=== PATIENT | female | born 1985 | race Caucasian/White ===

== ENCOUNTER → 2016-05-23 | Outpatient (CLI) | payer BC ==
[~2016-05-23] MED LIST: CALC500C70 PO; MAGN400T6 PO; OMEG10007 PO; PRENTAB26 PO
[2016-05-23 13:46] LABS: URINE APPEARANCE CLEAR (CLEAR); URINE BILIRUBIN NEG (NEG); URINE COLOR YELLOW; URINE EPITHELIAL CELL AUTO >30 /lpf (0-5); URINE NITRITE NEG (NEG); URINE PH 7.5 (4.5-7.5); UROBILINOGEN NEG (NEG)
[2016-05-23 13:50] LABS: MANUAL MICROSCOPIC REQUIRED? NO; REVIEW REQ? NO
== END | disposition home or self-care (01) ==
LOC: C.LABSPEC 13:20
PROVIDERS: ATTEND Obstetrics & Gynecology
DX: Z34.00 Encounter for supervision of normal first pregnancy, unspecified trimester (principal)

== ENCOUNTER → 2016-05-27 | Outpatient (CLI) | payer BC ==
[~2016-05-27] MED LIST changes: +CALCTAB30 PO
[2016-05-31 01:40] LABS: CHLAMYDIA TRACH RNA*** NOT DETECTED (NOT DETECTED); GC (NEIS GONORRHOEAE)RNA** NOT DETECTED (NOT DETECTED)
== END | disposition home or self-care (01) ==
LOC: C.LABSPEC 17:50
PROVIDERS: ATTEND Obstetrics & Gynecology
DX: Z34.00 Encounter for supervision of normal first pregnancy, unspecified trimester (principal)

== ENCOUNTER → 2016-05-30 | Outpatient (CLI) | payer BC ==
[2016-05-30 09:31] LABS: BASO % 0.2 %; BASO ABS # 0.01 K/uL (0-0.2); COMPLETE YES; HEMATOCRIT 33.5 % (37-47); IG% 0.2 %; LYMPH % 23.2 %; LYMPH ABS # 1.14 K/uL (1.2-3.4); MEAN CELL VOLUME 74.1 fL (80-100); MEAN CORPUSCULAR HGB CONC 33.7 g/dl (32-36); MEAN PLATELET VOLUME 10.6 fL (7.4-10.4); MONO % 9.6 %; NEUT % 64.8 %; PLATELET COUNT 276 K/uL (130-400); RED BLOOD COUNT 4.52 M/uL (4.2-5.4); WHITE BLOOD COUNT 4.91 K/uL (4.8-10.8)
== END | disposition home or self-care (01) ==
LOC: C.LAB1850 08:10
PROVIDERS: ATTEND Obstetrics & Gynecology
DX: Z34.00 Encounter for supervision of normal first pregnancy, unspecified trimester (principal)

== ENCOUNTER → 2016-07-22 | Outpatient (CLI) | payer BC ==
[~2016-07-22] MED LIST changes: -CALCTAB30 PO
[2016-07-22 18:16] LABS: GTGD 50 Grams
[2016-07-26 11:23] LABS: AFP CONCENTRATION 20.9 NG/ML; AFP MULTIPLE OF MEDIAN 0.54; AFPTS GESTATIONAL AGE 16.3 WEEKS; AFPTS INSULIN DEP DIABETIC? NO; AFPTS MATERNAL WT 122 LBS; ALPHA-FETOPROTEIN RACE CAUCASIAN=W; HISTORY OF NTD NO; REPEAT SAMPLE? NO
== END | disposition home or self-care (01) ==
LOC: C.LAB1850 15:51
PROVIDERS: ATTEND Obstetrics & Gynecology
DX: Z34.03 Encounter for supervision of normal first pregnancy, third trimester (principal)

== ENCOUNTER → 2016-10-13 | Outpatient (CLI) | payer BC ==
[~2016-10-13] MED LIST changes: +CALCTAB30 PO
[2016-10-13 17:39] LABS: HEMATOCRIT 33.7 % (37-47)
[2016-10-13 17:54] LABS: GTGD 50 Grams
== END | disposition home or self-care (01) ==
LOC: C.LAB1850 16:24
PROVIDERS: ATTEND Obstetrics & Gynecology
DX: Z34.03 Encounter for supervision of normal first pregnancy, third trimester (principal)

== ENCOUNTER → 2016-10-13 | Outpatient (CLI) | payer BC ==
[2016-10-13 19:10] LABS: URINE APPEARANCE CLEAR (CLEAR); URINE BILIRUBIN NEG (NEG); URINE COLOR YELLOW; URINE EPITHELIAL CELL AUTO >30 /lpf (0-5); URINE NITRITE NEG (NEG); URINE PH 8.5 (4.5-7.5); URINE SPECIFIC GRAVITY 1.012 (1.000-1.030); UROBILINOGEN NEG (NEG)
[2016-10-13 19:38] LABS: MANUAL MICROSCOPIC REQUIRED? NO; REVIEW REQ? NO
== END | disposition home or self-care (01) ==
LOC: C.LABSPEC 17:54
PROVIDERS: ATTEND Obstetrics & Gynecology
DX: Z34.03 Encounter for supervision of normal first pregnancy, third trimester (principal)

== ENCOUNTER → 2016-12-09 | Outpatient (CLI) | payer BC | END | disposition home or self-care (01) | LOC: C.LABSPEC 17:30 | PROVIDERS: ATTEND Obstetrics & Gynecology | DX: Z34.03 Encounter for supervision of normal first pregnancy, third trimester (principal) ==

== ENCOUNTER 2016-12-23 03:39 | Inpatient (IN) | payer BC ==
[~2016-12-23] VITALS: Ht 160 cm; Wt 68.6 kg
[2016-12-23] MEDS ORDERED: LACTATED RINGER'S 1000ML 1,000 ML IV SCH ×2 (04:06→05:04)
[2016-12-23] MEDS ORDERED: LACTATED RINGER'S 1000ML 1,000 ML IV PRN (04:06)
[2016-12-23] MEDS ORDERED: CALC500C70 PO (04:23)
[2016-12-23] MEDS ORDERED: PRENTAB26 PO (04:23)
[2016-12-23] MEDS ORDERED: MAGN400T6 PO (04:23)
[2016-12-23] MEDS ORDERED: OMEG10007 PO (04:23)
[2016-12-23] MEDS ORDERED: SUPERCREAM 0.870 % 15GM JAR EXT PRN (05:15)
[2016-12-23] MEDS ORDERED: OXYTOCIN 30 UNITS/500ML NSS IV PRN (05:15)
[2016-12-23] MEDS ORDERED: IBUPROFEN 600 MG TAB PO PRN (05:15)
[2016-12-23] MEDS ORDERED: BENZOCAINE 20% AER SPR 82.5 GM CAN EXT PRN (05:15)
[2016-12-23] MEDS ORDERED: OXYCODONE/ACETAMINOPHEN 5-325 TAB PO PRN (05:15)
[2016-12-23] MEDS ORDERED: DIPHTHERIA/TETANUS/PERTUSSIS 0.5 ML SYR/VIAL IM. ONE (05:15)
[2016-12-23] MEDS ORDERED: ACETAMINOPHEN 325 MG TAB PO PRN (05:15)
[2016-12-23] MEDS ORDERED: LANOLIN OINT EXT PRN ×2 (05:15)
[2016-12-23] MEDS ORDERED: HYDROCORTISONE ACETATE 25 MG SUPP PR PRN (05:15)
[2016-12-23 05:27] VITALS: Ht 160 cm; Wt 68.6 kg
[2016-12-23 05:27] LABS: MEAN CELL VOLUME 78.5 fL (80-100); MEAN CORPUSCULAR HEMOGLOBIN 26.4 pg (25-34); MEAN CORPUSCULAR HGB CONC 33.6 g/dl (32-36); MEAN PLATELET VOLUME 10.8 fL (7.4-10.4); PLATELET COUNT 133 K/uL (130-400); RED BLOOD COUNT 4.97 M/uL (4.2-5.4); WHITE BLOOD COUNT 14.94 K/uL (4.8-10.8)
[2016-12-23] MEDS ORDERED: OXYTOCIN INJ 10 UNITS/ML VIAL ONE (05:32)
[2016-12-23] MEDS ORDERED: DOCUSATE SODIUM 100 MG CAP PO SCH (08:00)
[2016-12-23] MEDS ORDERED: PRENATAL VITAMIN TAB PO SCH (08:00)
[2016-12-23] MEDS ORDERED: MAGNESIUM SULFATE / WTR 1,000 ML IV ONE (08:30)
[2016-12-23] MEDS ORDERED: MAGNESIUM SULFATE 4GM / WTR 100ML IV ONE (08:45)
[2016-12-23] MEDS ORDERED: MAGNESIUM SULFATE 40GM / WTR 1000 ML IV SCH (09:00)
[2016-12-23 09:11] LABS: BUN/CREATININE RATIO 16.4 (10-20); CALCIUM 8.8 mg/dl (8.5-10.1); CREATININE 0.92 mg/dl (0.60-1.20); POTASSIUM 4.3 mmol/L (3.5-5.1)
[2016-12-23 09:12] LABS: ALB/GLOB RATIO 0.7 (0.9-2)
[2016-12-23] MEDS ORDERED: LIDOCAINE HCL 2% JELLY 30 ML TUBE EXT ONE (11:06)
[2016-12-23] MEDS ORDERED: LABETALOL HCL IV 5 MG/ML 20ML IV ONE (12:38)
[2016-12-23] MEDS ORDERED: LABETALOL HCL IV 5 MG/ML 20ML IV PRN (12:45)
[2016-12-23] MEDS: LABETALOL HCL IV 5 MG/ML 20ML IV PRN ×3 (13:05→15:53)
[2016-12-23] MEDS ORDERED: LABETALOL HCL IV 5 MG/ML 20ML IV STA ×2 (14:01→15:46)
[2016-12-23 15:28] LABS: ALB/GLOB RATIO 0.7 (0.9-2); BUN/CREATININE RATIO 16.5 (10-20); CALCIUM 8.2 mg/dl (8.5-10.1); CREATININE 0.77 mg/dl (0.60-1.20)
[2016-12-23 15:46] LABS: HEMATOCRIT 30.6 % (37-47); MEAN CELL VOLUME 76.5 fL (80-100); MEAN CORPUSCULAR HEMOGLOBIN 26.3 pg (25-34); MEAN CORPUSCULAR HGB CONC 34.3 g/dl (32-36); PLATELET COUNT 42 K/uL (130-400); WHITE BLOOD COUNT 10.86 K/uL (4.8-10.8)
[2016-12-23 15:48] LABS: PLT ESTIMATE DECREASED
[2016-12-23 18:11] LABS: HEMATOCRIT 30.7 % (37-47); MEAN CELL VOLUME 75.6 fL (80-100); MEAN CORPUSCULAR HEMOGLOBIN 25.9 pg (25-34); RED BLOOD COUNT 4.06 M/uL (4.2-5.4); WHITE BLOOD COUNT 9.51 K/uL (4.8-10.8)
[2016-12-23 18:28] LABS: MEAN CORPUSCULAR HGB CONC 34.2 g/dl (32-36); PLATELET COUNT 28 K/uL (130-400)
[2016-12-23 18:29] LABS: PLT ESTIMATE DECREASED
[2016-12-23 18:39] LABS: BUN/CREATININE RATIO 13.6 (10-20); CALCIUM 7.6 mg/dl (8.5-10.1); CREATININE 0.89 mg/dl (0.60-1.20); POTASSIUM 4.1 mmol/L (3.5-5.1)
[2016-12-23 18:42] LABS: ALB/GLOB RATIO 0.8 (0.9-2)
--- NOTE | 2017-01-05 20:54 | Discharge Summary ---
Discharge Summary Date of Service Jan 05, 2017. Discharge Summary Admission Date: Dec 23, 2016 at 04:07 Discharge Date: Dec 23, 2016 Discharge Disposition: Home Principal Diagnosis: Precipitious delivery, thrombocytopenia Discharge Exam Nancy was admitted during the night supervisor on 12/23 in the green chain offbearer hours and underwent a precipitous vaginal delivery. At that time she was refusing placement of denisha or any medical interventions. Blood pressures were noted, however, to be abnormally high - this was signed out to Dr. Orozco who assumed care as of 8:30am, and the patient was kept in L&D for monitoring. Later in the day, labs revealed platelets in the 20s, consistent with probable severe preeclampsia. Platelet transfusion was given per Dr. Orozco. It appears that the patient was discharged to home later 12/23 at her own request. Hospital Course Total Time Spent: Less than 30 minutes This includes examination of the patient, discharge planning, medication reconciliation, and communication with other providers. Discharge Instructions Please refer to the electronic Patient Visit Report (Discharge Instructions) for additional information.
--- NOTE | 2017-01-05 20:55 | Vaginal Delivery Summary ---
Vaginal Delivery Summary Nancy arrived to Labor and Delivery completely dilated and with urge to push, accompanied by her emergency communications dispatcher and support persons. She declined placement of denisha or anesthesia. Shortly after arrival she pushed to deliver a viable infant vaginally without complication. Please see QS / CPN system for full documentation.
== END 2016-12-23 20:18 | disposition home or self-care (01) | DRG 775 ==
LOC: C.LD 03:39 → C.OPB 03:39 → C.LD 04:07 → C.OPB 04:07
PROVIDERS: ADMIT Obstetrics & Gynecology; ATTEND Obstetrics & Gynecology
PROC: 10E0XZZ Delivery of Products of Conception, External Approach (ICD-10-PCS; principal; 2016-12-23)
DX: O62.3 Precipitate labor (principal); O14.14 Severe pre-eclampsia complicating childbirth; Z37.0 Single live birth; Z3A.38 38 weeks gestation of pregnancy

== ENCOUNTER → 2017-02-09 | Outpatient (CLI) | payer BC ==
[2017-02-09 16:35] LABS: BASO % 0.5 %; BASO ABS # 0.03 K/uL (0-0.2); COMPLETE YES; EOS % 7.9 %; HEMATOCRIT 34.8 % (37-47); IG% 0.2 %; LYMPH % 38.7 %; MEAN CELL VOLUME 77.7 fL (80-100); MEAN CORPUSCULAR HEMOGLOBIN 25.9 pg (25-34); MEAN CORPUSCULAR HGB CONC 33.3 g/dl (32-36); MEAN PLATELET VOLUME 9.7 fL (7.4-10.4); MONO % 7.7 %; PLATELET COUNT 322 K/uL (130-400); RED BLOOD COUNT 4.48 M/uL (4.2-5.4); WHITE BLOOD COUNT 5.68 K/uL (4.8-10.8)
[2017-02-09 16:38] LABS: URINE APPEARANCE CLEAR (CLEAR); URINE BILIRUBIN NEG (NEG); URINE COLOR YELLOW; URINE NITRITE NEG (NEG); URINE SPECIFIC GRAVITY 1.008 (1.000-1.030); UROBILINOGEN NEG (NEG)
[2017-02-09 16:41] LABS: MANUAL MICROSCOPIC REQUIRED? NO; REVIEW REQ? YES
[2017-02-09 16:49] LABS: URINE EPITHELIAL CELL AUTO 0-5 /lpf (0-5)
[2017-02-09 17:05] LABS: ALT/SGPT 33 U/L (12-78); AST/SGOT 22 U/L (15-37); BLOOD UREA NITROGEN 7 mg/dl (7-18); BUN/CREATININE RATIO 11.2 (10-20); CALCIUM 9.4 mg/dl (8.5-10.1); CARBON DIOXIDE 27 mmol/L (21-32); CHLORIDE 105 mmol/L (98-107); CREATININE 0.66 mg/dl (0.60-1.20); GLUCOSE 96 mg/dl (70-99); SODIUM 138 mmol/L (136-145)
[2017-02-09 17:08] LABS: ALB/GLOB RATIO 1.3 (0.9-2); ALKALINE PHOSPHATASE 83 U/L (45-117)
== END | disposition home or self-care (01) ==
LOC: C.LAB1850 15:57
PROVIDERS: ATTEND Obstetrics & Gynecology
DX: O14.10 Severe pre-eclampsia, unspecified trimester (principal); R30.0 Dysuria

== ENCOUNTER 2017-02-24 06:12 | Emergency (ER) | payer BC ==
[~2017-02-24] VITALS: Ht 160 cm; Wt 58.0 kg
[~2017-02-24 06:12] MED LIST changes: -CALCTAB30 PO; +METHYLERGONOVINE MALEATE 0.2 MG TAB PO SCH
[2017-02-24 06:18] VITALS: TEMP 36.5
[2017-02-24] MEDS ORDERED: CALCTAB30 PO (06:35)
[2017-02-24] MEDS ORDERED: SODIUM CHLORIDE 0.9% 1000ML 1,000 ML IV STA (06:44)
[2017-02-24 07:00] VITALS: O2SAT 100; Ht 160 cm; Wt 58.0 kg
[2017-02-24 07:27] LABS: BASO % 0.5 %; BASO ABS # 0.02 K/uL (0-0.2); COMPLETE YES; EOS % 2.9 %; HEMATOCRIT 37.4 % (37-47); IG% 0.2 %; LYMPH % 43.7 %; LYMPH ABS # 1.83 K/uL (1.2-3.4); MEAN CELL VOLUME 75.1 fL (80-100); MEAN CORPUSCULAR HEMOGLOBIN 25.1 pg (25-34); MEAN CORPUSCULAR HGB CONC 33.4 g/dl (32-36); MEAN PLATELET VOLUME 9.4 fL (7.4-10.4); MONO % 7.9 %; NEUT % 44.8 %; PLATELET COUNT 289 K/uL (130-400); PROTHROMBIN TIME (PATIENT) 10.2 SECONDS (9.0-12.0); RED BLOOD COUNT 4.98 M/uL (4.2-5.4); WHITE BLOOD COUNT 4.19 K/uL (4.8-10.8)
[2017-02-24 07:37] LABS: BUN/CREATININE RATIO 16.2 (10-20); CALCIUM 9.2 mg/dl (8.5-10.1); CREATININE 0.77 mg/dl (0.60-1.20); POTASSIUM 3.4 mmol/L (3.5-5.1)
[2017-02-24 07:39] LABS: ALB/GLOB RATIO 1.1 (0.9-2)
[2017-02-24 07:52] LABS: MANUAL MICROSCOPIC REQUIRED? YES; URINE APPEARANCE CLOUDY (CLEAR); URINE BILIRUBIN NEG (NEG); URINE COLOR RED; URINE NITRITE NEG (NEG); URINE PH 6.5 (4.5-7.5); URINE SPECIFIC GRAVITY 1.015 (1.000-1.030); UROBILINOGEN NEG (NEG)
[2017-02-24 07:53] LABS: REVIEW REQ? NO; URINE RBC >30 /hpf (0-4)
[2017-02-24 07:55] LABS: URINE BACTERIA NEG (NEG)
--- NOTE | 2017-02-24 08:41 | DIAGNOSTIC IMAGING REPORT ---
ULTRASOUND OF THE PELVIS CLINICAL HISTORY: Vaginal bleeding. 9 weeks . COMPARISON STUDY: No priors. TECHNIQUE: Real-time, grayscale, and color flow sonography of the pelvis is performed transabdominally. Images are reviewed in the transverse and longitudinal planes. FINDINGS: Uterus: The uterus is normal in size and heterogeneous and echotexture, measuring 7.0 x 4.2 x 5.2 cm. Endometrium: The endometrium is thickened and heterogeneous, measuring up to 1.9 cm. There are 2 round heterogeneously hyperechoic and hypervascular nodular foci identified within the endometrium. These measure 2.1 cm and 1.5 cm. Ovaries: The ovaries are normal in size and morphology. The right ovary measures 2.1 x 1.4 x 1.9 cm and the left ovary measures 1.8 x 1.6 x 1.3 cm. Normal Doppler waveforms are shown within both ovaries. Pelvis: There is no free fluid in the cul-de-sac. No concerning adnexal lesion is seen. IMPRESSION: 1. There are 2 round, hyperechoic, and hypervascular nodular foci identified within the endometrium measuring up to 2.1 cm. Differential considerations include retained products of conception or possibly large endometrial polyps. Follow-up of the patient's biomedical equipment tech is recommended. 2. The ovaries are normal as visualized on this transabdominal examination. Electronically signed by: Bishnu Barnhart M.D. 02/24/2017 8:39 AM Dictated Date/Time: 02/24/2017 8:36 AM
[2017-02-24] MEDS ORDERED: METHYLERGONOVINE MALEATE 0.2 MG/ML AMP IM SCH (09:15)
--- NOTE | 2017-02-24 15:20 | EMERGENCY ROOM VISIT NOTE ---
History Report prepared by Emilie: Suni Horvath Under the Supervision of: Dr. Ramin Marquez D.O. First contact with patient: 06:34 Chief Complaint: VAGINAL BLEEDING Stated Complaint: POST BLEEDING (9 WKS) LG BLOOD CLOTS PASSED History of Present Illness The patient is a 31 year old female who presents to the Emergency Room with complaints of worsening vaginal bleeding for the past 3 days. The patient is 9 weeks post- with her first child. She had a normal vaginal delivery, but states that afterward she had preeclampsia with HELLP syndrome. After delivery she was transferred to [place] for 4 days. She was on labetalol but is no longer taking that. The patient's bleeding had not completely stopped but she states that it was very light. Three days ago she started passing quarter-sized clots and her bleeding started to get heavier. Yesterday she called her ob-nurse obgyn and they wanted to schedule an ultrasound. She woke up this morning at 5am and passed a very large clot. She has had heavy bleeding all morning and states that she is bleeding through more than 1 pad per hour. The patient reports some pressure that she states feels like she needs to have a bowel movement. She rates her pain as a 2/10 in severity. Her last bowel movement was yesterday and was normal. The patient denies abdominal pain and urinary symptoms. She does not take any blood thinners. Source of History: patient Onset: 3 days ago Position: other (vagina) Symptom Intensity: 2/10 Quality: other (bleeding) Timing: worsening Associated Symptoms: No abdominal pain, No urinary symptoms Review of Systems See HPI for pertinent positives & negatives. A total of 10 systems reviewed and were otherwise negative. Past Medical & Surgical Medical Problems: (1) Normal labor and delivery Family History No pertinent history stated. Social History Smoking Status: Never Smoker Housing Status: lives with family Current/Historical Medications Scheduled Ncopqhm-Wytdzcywx-Nkof (Calcium/Magnesium/Zinc), 1 TAB PO DAILY Calcium/Vitamin D (Os-Darinel 500 Plus D), 1 TAB PO DAILY Multivit/Min/Iron/Fol Ac/Pren ( Vitamin), 1 TAB PO DAILY Miscellaneous Medications Fish Oil ([place]-3), 1 CAP PO Allergies Coded Allergies: [place] (Unverified Allergy, Mild, GI SYMPTOMS, 02/24/17) Dairy (Unverified Allergy, Mild, GI SYMPTOMS, 02/24/17) Gluten (Unverified Allergy, Mild, GI SYMPTOMS, 02/24/17) Physical Exam Vital Signs Date Time Temp Pulse Resp B/P (MAP) Pulse Ox O2 Delivery O2 Flow Rate FiO2 02/24/17 13:11 75 18 109/64 98 Room Air 02/24/17 11:45 73 16 114/73 100 Room Air 02/24/17 11:17 74 02/24/17 09:45 84 20 120/73 99 Room Air 02/24/17 07:30 67 20 115/77 100 Room Air 02/24/17 07:19 62 02/24/17 07:00 100 Room Air 02/24/17 06:18 36.5 90 20 114/81 100 Room Air Physical Exam GENERAL: alert, sitting up in bed, well appearing, well nourished, no distress, non-toxic EYE EXAM: normal conjunctiva OROPHARYNX: no exudate, no erythema, lips, buccal mucosa, and tongue normal and mucous membranes are moist NECK: supple, no nuchal rigidity, no adenopathy, non-tender LUNGS: Clear to auscultation. Normal chest wall mechanics HEART: no murmurs, S1 normal and S2 normal ABDOMEN: abdomen soft, non-tender, normo-active bowel sounds, no masses, no rebound or guarding. BACK: Back is symmetrical on inspection and there is no deformity, no midline tenderness, no CVA tenderness. : Normal external genitalia. Three half dollar sized clots removed from cervix , which is partially open. Faint amount of bleeding following removal of clots. SKIN: no rashes and no bruising UPPER EXTREMITIES: upper extremities are grossly normal. LOWER EXTREMITIES: No pitting edema. NEURO EXAM: Normal sensorium, cranial nerves II-XII grossly intact, normal speech, no gross weakness of arms, no gross weakness of legs. Medical Decision & Procedures ER Provider Diagnostic Interpretation: Radiology results as stated below per my review and the radiologist's interpretation: ULTRASOUND OF THE PELVIS CLINICAL HISTORY: Vaginal bleeding. 9 weeks . COMPARISON STUDY: No priors. TECHNIQUE: Real-time, grayscale, and color flow sonography of the pelvis is performed transabdominally. Images are reviewed in the transverse and longitudinal planes. FINDINGS: Uterus: The uterus is normal in size and heterogeneous and echotexture, measuring 7.0 x 4.2 x 5.2 cm. Endometrium: The endometrium is thickened and heterogeneous, measuring up to 1.9 cm. There are 2 round heterogeneously hyperechoic and hypervascular nodular foci identified within the endometrium. These measure 2.1 cm and 1.5 cm. Ovaries: The ovaries are normal in size and morphology. The right ovary measures 2.1 x 1.4 x 1.9 cm and the left ovary measures 1.8 x 1.6 x 1.3 cm. Normal Doppler waveforms are shown within both ovaries. Pelvis: There is no free fluid in the cul-de-sac. No concerning adnexal lesion is seen. IMPRESSION: 1. There are 2 round, hyperechoic, and hypervascular nodular foci identified within the endometrium measuring up to 2.1 cm. Differential considerations include retained products of conception or possibly large endometrial polyps. Follow-up of the patient's public works inspector is recommended. 2. The ovaries are normal as visualized on this transabdominal examination. Electronically signed by: Bishnu Barnhart M.D. 02/24/2017 8:39 AM Dictated Date/Time: 02/24/2017 8:36 AM Laboratory Results 02/24/17 07:00 Red Blood Count 4.98, Mean Corpuscular Volume 75.1, Mean Corpuscular Hemoglobin 25.1, Mean Corpuscular Hemoglobin Concent 33.4, Mean Platelet Volume 9.4, Neutrophils (%) (Auto) 44.8, Lymphocytes (%) (Auto) 43.7, Monocytes (%) (Auto) 7.9, Eosinophils (%) (Auto) 2.9, Basophils (%) (Auto) 0.5, Neutrophils # (Auto) 1.88, Lymphocytes # (Auto) 1.83, Monocytes # (Auto) 0.33, Eosinophils # (Auto) 0.12, Basophils # (Auto) 0.02 02/24/17 07:00 Test 02/24/17 07:00 02/24/17 07:15 White Blood Count 4.19 K/uL (4.8-10.8) Red Blood Count 4.98 M/uL (4.2-5.4) Hemoglobin 12.5 g/dL (12.0-16.0) Hematocrit 37.4 % (37-47) Mean Corpuscular Volume 75.1 fL (80-100) Mean Corpuscular Hemoglobin 25.1 pg (25-34) Mean Corpuscular Hemoglobin Concent 33.4 g/dl (32-36) Platelet Count 289 K/uL (130-400) Mean Platelet Volume 9.4 fL (7.4-10.4) Neutrophils (%) (Auto) 44.8 % Lymphocytes (%) (Auto) 43.7 % Monocytes (%) (Auto) 7.9 % Eosinophils (%) (Auto) 2.9 % Basophils (%) (Auto) 0.5 % Neutrophils # (Auto) 1.88 K/uL (1.4-6.5) Lymphocytes # (Auto) 1.83 K/uL (1.2-3.4) Monocytes # (Auto) 0.33 K/uL (0.11-0.59) Eosinophils # (Auto) 0.12 K/uL (0-0.5) Basophils # (Auto) 0.02 K/uL (0-0.2) RDW Standard Deviation 40.7 fL (36.4-46.3) RDW Coefficient of Variation 14.9 % (11.5-14.5) Immature Granulocyte % (Auto) 0.2 % Immature Granulocyte # (Auto) 0.01 K/uL (0.00-0.02) Prothrombin Time 10.2 SECONDS (9.0-12.0) Prothromb Time International Ratio 1.0 (0.9-1.1) Activated Partial Thromboplast Time 27.1 SECONDS (21.0-31.0) Partial Thromboplastin Ratio 1.0 Anion Gap 9.0 mmol/L (3-11) Est Creatinine Clear Calc Drug Dose 87.5 ml/min Estimated GFR () 119.2 Estimated GFR (Non- 102.9 BUN/Creatinine Ratio 16.2 (10-20) Calcium Level 9.2 mg/dl (8.5-10.1) Total Bilirubin 0.4 mg/dl (0.2-1) Aspartate Amino Transf (AST/SGOT) 24 U/L (15-37) Alanine Aminotransferase (ALT/SGPT) 28 U/L (12-78) Alkaline Phosphatase 85 U/L (45-117) Total Protein 7.9 gm/dl (6.4-8.2) Albumin 4.2 gm/dl (3.4-5.0) Globulin 3.7 gm/dl (2.5-4.0) Albumin/Globulin Ratio 1.1 (0.9-2) Human Chorionic Gonadotropin, Quant 4 mIU/mL Urine Color RED Urine Appearance CLOUDY (CLEAR) Urine pH 6.5 (4.5-7.5) Urine Specific [place] 1.015 (1.000-1.030) Urine Protein TRACE (NEG) Urine Glucose (UA) NEG (NEG) Urine Ketones TRACE (NEG) Urine Occult Blood 3+ (NEG) Urine Nitrite NEG (NEG) Urine Bilirubin NEG (NEG) Urine Urobilinogen NEG (NEG) Urine Leukocyte Esterase NEG (NEG) Urine RBC >30 /hpf (0-4) Urine WBC 1-5 /hpf (0-5) Urine Epithelial Cells 0-5 /lpf (0-5) Urine Bacteria NEG (NEG) Laboratory results per my review. Medications Administered Medications (Trade) Dose Ordered Sig/Victorino Route Start Time Stop Time Status Last Admin Dose Admin Sodium Chloride 1,000 ml @ 999 mls/hr Q1H1M STAT IV 02/24/17 06:44 02/24/17 07:44 DC 02/24/17 07:28 999 MLS/HR Methylergonovine Maleate (Methergine Inj) 0.2 mg NOW IM 02/24/17 09:15 03/26/17 09:14 02/24/17 11:49 0.2 MG ED Course ED COURSE: Vital signs were reviewed and showed normal vitals. The patients medical record was reviewed The above diagnostic studies were performed and reviewed. ED treatments and interventions as stated above. 0634: The patient was evaluated in room B9. A complete history and physical examination was performed. 0644: NSS 1000 ml @ 999 mls/hr IV 0719: At this time I performed a pelvic examination. Please see above for my findings. 0851: I spoke with Dr. Dsouza of ob-nurse obgyn. We discussed the patient's case. She will call back. 0903: I spoke with Dr. Dsouza again. She recommended 0.2 mg IM of Methergine. 0909: I reassessed the patient. She is currently . I updated her and she is in agreement with the treatment plan. 0915: Methergine 0.2 mg IM 1307: I spoke with Dr. Dsouza of ob-nurse obgyn. She had already seen in the patient in the ED. She is coming back to the ED to reevaluate the patient. 1431: Upon reevaluation, the patient is resting comfortably. Her vaginal bleeding has improved. I discussed my findings with the patient and she understands and agrees with the treatment plan. Based on the patients age, coexisting illnesses, exam and lab findings the decision to treat as an outpatient was made. The patient remained stable while under my care. The patient appeared well at the time of discharge. 2200: Methergine tab 0.2 mg PO Medical Decision Differential diagnoses includes but is not limited to appendicitis, diverticulitis, small bowel obstruction, malignancy, hernia, urinary tract infection, torsion, and ectopic , perforation, trauma, infectious. Patient is a 31-year-old female who presents to ER for vaginal bleeding. This started this past Monday and has been slightly worsening. Previous vaginal delivery 9 weeks ago which was complicated with the exception of preeclampsia/ hellp syndrome following which she was transferred down to [facility]. She was discharged after 4 days. CBC all BMP, LFTs, bilirubin was unremarkable. HCG quant of 4. UA without infection. Ultrasound shows possible retained products. Pelvic fair amount of clot was removed and there is no active bleeding following this. Discussed with OB. Methargen given. Patient evaluated by OB on 2 separate occasions. Bleeding decreased significantly. She was discharged with Methergine to follow-up with OB within week. Discussed with Pt concerning signs and symptoms to watch out for. Pt was instructed to follow up with their PCP and discussed with the patient their option to return to the ED at anytime for persistent or worsening symptoms. The appropriate anticipatory guidance and out-patient management, including indications for return to the emergency department, were explained at length to the patient and understood. Medication Reconcilliation Current Medication List: was personally reviewed by me Blood Pressure Screening Patient's blood pressure: Normal blood pressure Consults Time Called: 0948 Consulting Physician: Dr. Dsouza Returned Call: [phone] Dsouza of ob-nurse obgyn. We discussed the patient's case. She will call back. Additional Consults: Time Called: 0903 Consulted Physician: Dr. Dsouza Returned Call: [phone] Additional Comments: I spoke with Dr. Dsouza again. She recommended 0.2 mg IM of Methergine. Time Called: 1307 Consulted Physician: Dr. Dsouza Returned Call: [phone] Additional Comments: I spoke with Dr. Dsouza of ob-nurse obgyn. She had already seen in the patient in the ED. She is coming back to the ED to reevaluate the patient. Impression Primary Impression: Vaginal bleeding Scribe Attestation The scribe's documentation has been prepared under my direction and personally reviewed by me in its entirety. I confirm that the note above accurately reflects all work, treatment, procedures, and medical decision making performed by me. Departure Information Dispostion Home / Self-Care Referrals Marimar Duong MD (PCP) Pretty Mar M.D. Forms HOME CARE DOCUMENTATION FORM, IMPORTANT VISIT INFORMATION, WORK / SCHOOL INSTRUCTIONS Patient Instructions ED Bleed Irregular Vaginal, My [facility] Additional Instructions Please follow up with your DRYCLEANER with in the next 48 hours. Any worsening of your symptoms, please return to the ED immediately. This includes any fevers greater than 100.4, going through more than 1 pad an hour, passing out, feeling dizzy, lightheaded, worsening pain, chest pain, shortness breath, persistent nausea, vomiting, unable to eat or drink, or any other concerning signs or symptoms from your standpoint. Please take Methergine as prescribed. If going through more than 1 pad an hour please call OB and return to the ER.
[2017-02-24 15:28] VITALS: BP 122/79; PULSE 74; O2SAT 97
[2017-02-24] MEDS ORDERED: METHYLERGONOVINE MALEATE 0.2 MG TAB PO SCH (22:00)
--- NOTE | 2017-02-25 01:05 | GYNECOLOGICAL CONSULTATION ---
DATE OF CONSULTATION: 02/24/2017 PRINCIPAL DIAGNOSIS: bleeding. HISTORY OF PRESENT ILLNESS: The patient is a 31-year-old G1, P0 white female who delivered spontaneously on 12/23/2016. According to the records, there were no complications with the delivery including the delivery of the placenta which was inspected at the time of delivery and was noted to be intact. The placenta also delivered spontaneously. She did have complications with HELLP syndrome, platelet count nadired at 20,000. She was transferred to [place] for 4 days for continued observation and was sent home on labetalol for her blood pressure. She was seen for a visit at 8 weeks and was complaining of some light bleeding at that time. She noted that she had been , but because of flat nipples, she has been exclusively pumping for breast milk and feeding the baby with a bottle. She is doing this about every 3-4 hours. She had continued to have the light bleeding. However, 3 days prior to arriving in the Emergency Room, she started increase of bleeding following increased activity, both walking and lifting. On the morning of her arrival in the Emergency Room, she had passed a clot and the bleeding had increased to soaking a pad in less than an hour. Upon arrival in the Emergency Room, she was stable. Her blood pressure was normal at 120/75, pulse was 70 and she was able to sit up and talk, was not lightheaded or hypotensive. She did have moderate amount of clots removed from her vagina by the Emergency Room doctor. She received some IV fluids and when I evaluated her, her bleeding had significantly decreased, although she still felt the flow was more than she had seen prior to her arrival in the Emergency Room. Her hCG was 4. Ultrasound showed clot and possible some retained products. Hemoglobin was 12.5, white count was 4000, platelet count was 289,000. She was afebrile and was not experiencing any cramping or abdominal pain, shortness of breath, no lightheadedness. She is able to ambulate to the bathroom without any difficulty. The patient accepted an IM injection of 0.2 mg of Methergine. She also pumped for breast milk just prior to doing the Methergine. She did get 3 ounces at breast milk at that time. Her bleeding 2 hours later was scant and again she was asymptomatic. Her findings as far as her blood count and her ultrasound were discussed with the patient at length. It was felt that at this point, she did not need a D&C based on the ultrasound findings and the hCG level which was 4, which points to less possibility of retained placental tissue and now what they were seeing was most likely clot. The patient was agreeable to go home on Methergine 0.2 mg q. 8 hours for a total of 3 days. She will call for any increase in bleeding, fever, chills, increased abdominal pain. She is also to continue to pump and she is going to increase her pumping episodes to every 2-3 hours. She will have a followup visit in the office on 03/03/2017. KUMAR
== END 2017-02-24 15:47 | disposition home or self-care (01) ==
LOC: C.EDB 06:14
DX: N93.9 Abnormal uterine and vaginal bleeding, unspecified (principal)

== ENCOUNTER 2019-10-21 03:55 | Inpatient (IN) ==
[2019-10-21] MEDS ORDERED: OXYTOCIN 30 UNITS/500ML NSS ONE (04:12)
[2019-10-21] MEDS ORDERED: OXYTOCIN 30 UNITS/500 ML BAG IV PRN (04:16)
[2019-10-21] MEDS ORDERED: LACTATED RINGER'S 1,000 ML IV PRN (04:16)
--- NOTE | 2019-10-21 04:51 | Delivery Summary ---
Vaginal Delivery Summary Date of Service October 21, 2019 Vaginal Delivery Summary DIAGNOSES: 1. Rubio intrauterine at 36w2d gestation. 2. Spontaneous onset of labor. 3. Group B Streptococcus Unknown. PROCEDURE: Spontaneous vaginal delivery and repair of second degree laceration. SURGEON: Dasha Hager MD. MANAGER LOGISTIC: None. ESTIMATED BLOOD LOSS: 400 mL. COMPLICATIONS: None. PLACENTA: Spontaneous and intact with a 3-vessel cord. DISPOSITION: Stable to labor and delivery. DESCRIPTION: The patient pushed well and brought the head to in OA position. The infant's head was allowed to deliver with contraction force and no further active pushing, with the perineum protected during this time. The shoulders delivered easily with a maternal pushing effort. There was no nuchal cord. The left shoulder was anterior. The shoulders and body delivered without any difficulty, and the infant was placed on the maternal abdomen. It was vigorous and moving all extremities, and making respiratory efforts. The cord was doubly clamped by the MD and then cut by the FOB. The placenta delivered spontaneously and was noted to be intact and with a 3VC. The cervix, vagina and perineum were examined and were found to have a second degree laceration which was repaired in the usual manner with vicryl, including a crown suture to rebuild the perineal body. The fundus was firm and lochia minimal immediately after delivery.
[2019-10-21] MEDS ORDERED: SUPERCREAM 0.870% 15 GM JAR EXT PRN (05:38)
[2019-10-21] MEDS ORDERED: BENZOCAINE 20% AER SPR 82.5 GM CAN EXT PRN (05:38)
[2019-10-21] MEDS ORDERED: HYDROCORTISONE ACETATE 25 MG SUPP PR PRN (05:38)
[2019-10-21] MEDS ORDERED: ACETAMINOPHEN 325 MG TAB PO PRN (05:38)
[2019-10-21] MEDS ORDERED: DIPHTHERIA/TETANUS/PERTUSSIS 0.5 ML SYR/VIAL IM ONE (05:38)
[2019-10-21] MEDS ORDERED: OXYCODONE/ACETAMINOPHEN 5mg/325mg TAB PO PRN (05:38)
[2019-10-21 05:53] LABS: Hematocrit (blood only) 41.6 % (37-47); Hemoglobin 13.8 g/dL (12.0-16.0); Mean Corpuscular Hemoglobin 26.3 pg (25-34); Mean Corpuscular Hgb Conc 33.2 g/dL (32-36); Mean Corpuscular Volume 79.4 fL (80-100); Mean Platelet Volume 11.2 fL (7.4-10.4); Nucleated RBC # (auto) 0.07 K/uL (0-0); Nucleated RBC % (auto) 0.8 %; Platelet Count 217 K/uL (130-400); RDW Coefficient of Variation 17.1 % (11.5-14.5); RDW Standard Deviation 48.6 fL (36.4-46.3); Red Blood Count 5.24 M/uL (4.2-5.4); White Blood Count 8.68 K/uL (4.8-10.8)
[2019-10-21] MEDS: PRENATAL VITAMIN 1 TAB PO SCH (08:17)
[2019-10-21] MEDS: IBUPROFEN 600 MG TAB PO PRN ×4 (08:17→21:10)
[2019-10-21] MEDS: DOCUSATE SODIUM 100 MG CAP PO SCH ×2 (08:17→21:10)
[2019-10-22] MEDS: IBUPROFEN 600 MG TAB PO PRN ×6 (02:09→23:03)
--- NOTE | 2019-10-22 05:56 | Obstetrical Progress Note ---
Date of Service October 22, 2019 Assessment & Plan (1) state: PPD 1 Ambulating, doing well. Subjective Ambulation: ambulating normally Voiding: no voiding problems Diet Tolerance:: regular diet Lochia:: Small Feeding Type:: breast feeding Current Pain Level(1-10): 1 Physical Exam Constitutional WD/WN, vitals as above Respiratory normal respiratory effort, lungs clear to auscultation Gastrointestinal (Abdomen) normal bowel sounds, soft, nontender, no hepatosplenomegaly (min bleeding, ext neg) Results & Data Vital Signs (Past 12 Hours) Vital Signs Temp Pulse Resp BP Pulse Ox 10/22/19 03:30 97.9 F 70 18 108/75 96 10/21/19 23:51 98.1 F 51 L 18 129/84 96 10/21/19 19:30 97.5 F L 65 18 117/76 97
[2019-10-22 07:44] LABS: Hemoglobin 12.6 g/dL (12.0-16.0); Mean Corpuscular Hemoglobin 26.4 pg (25-34); Mean Corpuscular Hgb Conc 33.2 g/dL (32-36); Mean Corpuscular Volume 79.7 fL (80-100); Platelet Count 216 K/uL (130-400); RDW Coefficient of Variation 17.2 % (11.5-14.5); RDW Standard Deviation 48.8 fL (36.4-46.3); Red Blood Count 4.77 M/uL (4.2-5.4); White Blood Count 8.81 K/uL (4.8-10.8)
[2019-10-22] MEDS: DOCUSATE SODIUM 100 MG CAP PO SCH ×2 (08:30→20:51)
[2019-10-22] MEDS: PRENATAL VITAMIN 1 TAB PO SCH (08:30)
--- NOTE | 2019-10-23 06:51 | Obstetrical Progress Note ---
Date of Service <Chula Sascha, DO - Last Filed: 10/23/19 07:55> October 23, 2019 Assessment & Plan <Chula Sascha, DO - Last Filed: 10/23/19 07:55> (1) state: - doing well and without complaints today. - for discharge today. - went nasir d/c instructions and answered all patient questions. Subjective <Chula Caicedo DO - Last Filed: 10/23/19 07:55> 34 yo F ; PPD # 2 following vaginal delivery 10/20; doing well this AM; no abdominal cramping/pain; voiding well; tolerating meals overnight, able to ambulate some within the room. Some persistent spotting this morning but improved from yesterday. Review of Systems Constitutional: denies fever, chills, sweats, headache Respiratory: denies SOB, difficulty breathing Cardiac: denies CP, chest palpitations, chest pressure Breast: denies breast pain : denies dysuria Physical Exam <Chula Caicedo DO - Last Filed: 10/23/19 07:55> General: patient is alert and oriented, in NAD Cardiac: +S1/S2, no murmurs rubs or gallops Respiratory: lungs CTA b/l, anteriorly and posteriorly, no wheezes rales or rhonchi, no increased work of breathing, symmetric chest rise, no respiratory distress Abdomen: soft, NT, +bowel sounds Uterus: uterine fundus firm, palpable below the level of the umbilicus Lower Extremities: no LE edema or swelling, no deep calf pain, Bouchra's sign negative b/l Results & Data <DO Lico Loomis Last Filed: 10/23/19 07:55> Vital Signs (Past 12 Hours) Vital Signs Temp Pulse Resp BP 10/22/19 23:45 36.6 C 62 18 118/75 <Philip Narayanan MD - Last Filed: 10/23/19 08:24> Co-Signing Physician Notes Patient seen and evaluated and agree with the above findings and plan. Stable for discharge Resident Activity Tracking <Chula Caicedo DO - Last Filed: 10/23/19 07:55> Resident Involvement: Resident Care Provided Care Provided: OB Delivery
[2019-10-23] MEDS: PRENATAL VITAMIN 1 TAB PO SCH (08:52)
[2019-10-23] MEDS: DOCUSATE SODIUM 100 MG CAP PO SCH (08:52)
== END 2019-10-23 14:25 | disposition home or self-care (01) | DRG 807 ==
LOC: OPB 03:55 → 4S1 03:57 → 4S2 07:55